=== PATIENT | male | born 1965 | race Two or more races ===

== ENCOUNTER 2022-02-16 05:22 | Day surgery (SDC) | payer OTHER ==
[~2022-02-16 05:22] MED LIST: COZAAR50 MG PO; D3 + K2 DOTS 11 EACH PO; LIPITOR20 MG PO; METFORMIN HCL500 M3 PO; TAMS0.4C PO; VITAMIN C500 M6 PO
[2022-02-16] MEDS ORDERED: SIMVAST PO (07:48)
[2022-02-16] MEDS ORDERED: CASODEX50 MG PO (07:48)
[2022-02-16] MEDS ORDERED: UROXATRAL10 MG PO (07:48)
[2022-02-16] MEDS ORDERED: LEVOTHYROXINE25 MCG PO (07:49)
[2022-02-16] MEDS ORDERED: KEPPRA100 MG/1 M PO (07:50)
[2022-02-16] MEDS ORDERED: TAMS0.4C PO (08:42)
[2022-02-16] MEDS ORDERED: LOSART PO (08:43)
[2022-02-16] MEDS ORDERED: GLUMETZA500 MG PO (08:43)
[2022-02-16] MEDS ORDERED: PERCOCET 5-3251 EACH PO (11:52)
== END 2022-02-16 17:20 | disposition home or self-care (01) ==
LOC: CIR.AMB 05:22
PROVIDERS: ATTEND Surgery
DX: E21.0 Primary hyperparathyroidism (principal); Z20.822 Contact with and (suspected) exposure to COVID-19; I10 Essential (primary) hypertension; Z86.16 Personal history of COVID-19; Z87.442 Personal history of urinary calculi; N40.0 Benign prostatic hyperplasia without lower urinary tract symptoms; G61.0 Guillain-Barre syndrome